=== PATIENT | female | born 1990 | race Caucasian/White ===

== ENCOUNTER 2018-12-08 01:45 | Inpatient (IN) | payer BC, SELFPAY ==
[~2018-12-08] VITALS: Ht 162.6 cm; Wt 88.9 kg
[2018-12-08] MEDS: LR 1,000 ML IV SCH ×5 (02:10→23:31)
[2018-12-08] MEDS ORDERED: OXYTOCIN/0.9 % SODIUM CHLORIDE 1,000 ML IV SCH (03:26)
[2018-12-08] MEDS ORDERED: TERBUTALINE SULFATE 1 MG/ML VIAL SUBCUT ONE (03:30)
[2018-12-08] MEDS ORDERED: NALBUPHINE HCL 10 MG/ML AMP IM PRN (03:30)
[2018-12-08] MEDS ORDERED: DINOPROSTONE 10 MG SUPP VG ONE ×2 (03:30→14:45)
[2018-12-08] MEDS ORDERED: NALBUPHINE HCL 10 MG/ML AMP IVP PRN (03:30)
[2018-12-08 03:42] VITALS: BP_SYST 120
[2018-12-08 04:22] LABS: HEMATOCRIT 34.9 % (36-48); HEMOGLOBIN 11.7 g/dL (12.0-16.0); LYMPHOCYTES % (AUTO) 22.2 % (20.5-51.5); MEAN CORPUSCULAR HEMOGLOBIN 28 pg (27-31); MEAN CORPUSCULAR HGB CONC 34 % (32-36); MEAN CORPUSCULAR VOLUME 83 fL (79.0-98.0); PLATELET COUNT (AUTO) 290 K/uL (130-430); RED BLOOD CELL COUNT(AUTO) 4.19 MIL/uL (4.2-6.2); RED CELL DISTRIBUTION WIDTH 14.1 % (9.0-15.0); WHITE BLOOD COUNT (AUTO) 6.5 K/uL (4.8-10.8)
[2018-12-08 04:23] LABS: BASOPHILS % (AUTO) 0.4 % (0.0-2.0); EOSINOPHILS % (AUTO) 0.6 % (0.0-4.0); LYMPHOCYTES # (AUTO) 1.5 K/uL (1.0-5.5); MONOCYTES # (AUTO) 0.6 K/uL (0.0-1.0); MONOCYTES % (AUTO) 8.8 % (1.7-9.3); NEUTROPHILS # (AUTO) 4.4 K/uL (1.8-7.7)
[2018-12-08] MEDS ORDERED: ROPIVACAINE 0.2% 100 ML ONE (22:32)
[2018-12-08] MEDS ORDERED: fentaNYL CITRATE/PF 100 MCG/2 ML AMP ONE (22:32)
[2018-12-09] MEDS ORDERED: ROPIVACAINE 0.2% 100 ML ONE (07:09)
[2018-12-09] MEDS: LR 1,000 ML IV SCH (08:06)
[2018-12-09] MEDS ORDERED: OXYTOCIN/0.9 % SODIUM CHLORIDE 1,000 ML IV ONE (12:03)
[2018-12-09] MEDS ORDERED: OXYTOCIN/0.9 % SODIUM CHLORIDE 1,000 ML IV SCH (12:03)
[2018-12-09] MEDS ORDERED: MEASLES,MUMPS&RUBELLA VACC/PF 12500 UNIT/0.5 ML VIAL SUBQ PRN (12:15)
[2018-12-09] MEDS ORDERED: SENNOSIDES/DOCUSATE SODIUM 1 TAB TABLET(SENOKOT-S) PO PRN (12:15)
[2018-12-09] MEDS ORDERED: ANUSOL 1 EA SUPP.RECT (PREPARATION H) RC PRN (12:15)
[2018-12-09] MEDS ORDERED: LANOLIN 7 GM OINT. TP PRN (12:15)
[2018-12-09] MEDS ORDERED: HYDROCORTISONE 0.5%, 28.35 GM TOPICAL CREAM TP PRN (12:15)
[2018-12-09] MEDS ORDERED: DERMOPLAST SPRAY TP PRN (12:15)
[2018-12-09] MEDS ORDERED: WITCH HAZEL LEAF 1 MED.PAD MED.PAD TP PRN (12:15)
[2018-12-09] MEDS ORDERED: ACETAMINOPHEN 325 MG TABLET PO PRN (12:15)
[2018-12-09] MEDS ORDERED: DIPH-TET-PERTUS Vaccine 0.5 ML VIAL (ADACEL) I.M. PRN (12:15)
[2018-12-09] MEDS ORDERED: OXYCODONE/ACETAMINOPHEN 5-325 TABLET PO PRN ×2 (12:15)
[2018-12-09] MEDS ORDERED: RHO(D) IMMUNE GLOBULIN/MALTOSE 1500 UNITS/1.3 ML (WINHRO) IM PRN (12:15)
[2018-12-09] MEDS ORDERED: LR 500 ML IV ONE (14:06)
[2018-12-09] MEDS ORDERED: FENT2mCg/mL-ROPIVA0.2%/NS EPID 100 ML EP SCH (14:15)
[2018-12-09] MEDS: IBUPROFEN 600 MG TABLET PO SCH (18:25)
[2018-12-09] MEDS ORDERED: TEMAZEPAM 15 MG CAPSULE PO PRN (21:00)
[2018-12-10] MEDS: DOCUSATE SODIUM 100 MG CAPSULE PO PRN ×3 (00:02→12:44)
[2018-12-10] MEDS: IBUPROFEN 600 MG TABLET PO SCH ×3 (00:02→12:45)
[2018-12-10 08:05] LABS: HEMATOCRIT 32.9 % (36-48)
[2018-12-10] MEDS ORDERED: LIDOCAINE PF 1% 30ML(POUR BTL) INJ ONE (16:20)
[2018-12-14 10:21] LABS: FTA-Ab (T PALLIDUM) Non-Reactive (NonReactive)
== END 2018-12-10 15:52 | disposition home or self-care (01) | DRG 807 ==
LOC: SPU 01:45
PROVIDERS: ADMIT Obstetrics & Gynecology; ATTEND Obstetrics & Gynecology
PROC: 10E0XZZ Delivery of Products of Conception, External Approach (ICD-10-PCS; principal; 2018-12-09)
PROC: 0UQMXZZ Repair Vulva, External Approach (ICD-10-PCS; 2018-12-09)
PROC: 3E0R3BZ Introduction of Anesthetic Agent into Spinal Canal, Percutaneous Approach (ICD-10-PCS; 2018-12-09)
PROC: 00HU33Z Insertion of Infusion Device into Spinal Canal, Percutaneous Approach (ICD-10-PCS; 2018-12-09)
PROC: 3E0P7VZ Introduction of Hormone into Female Reproductive, Via Natural or Artificial Opening (ICD-10-PCS; 2018-12-09)
DX: O16.4 Unspecified maternal hypertension, complicating childbirth (principal); Z37.0 Single live birth; O70.0 First degree perineal laceration during delivery; Z3A.40 40 weeks gestation of pregnancy
CPT/HCPCS: 36415; 81002-TC; 85018-TC; 85025; 86592; 86780; 86886; 86900; 86901; J2001; J2590; J2795; J3010; J7120